=== PATIENT | female | born 1955 | race Caucasian/White ===

== ENCOUNTER → 2017-08-20 | Outpatient (CLI) | payer OTHER ==
[~2017-08-20] MED LIST: ASPIR 8181 MG PO; AUGMENTIN 875-1 EACH PO; CHOLESTYRAMINE P4 GM PO; CIPRO500 MG PO; FLAGYL500 MG PO; KEFLEX500 M1 PO; LIPITOR 20 MG T20 M1 PO; LOPRESSOR25 PO; LORATIDINE 10 M10 M1 PO; OMEPRAZOLE 20 M20 M1 PO; PHENERGAN 25 MG25 M1 PO; REFRESH OPTIVE15 ML OPHTHALMIC; RELPAX40 MG PO; SYNTHROID100 MC1 PO
== END ==
LOC: RAD 04:29
DX: Z12.31 Encounter for screening mammogram for malignant neoplasm of breast (principal)

== ENCOUNTER 2017-12-27 21:57 | Emergency (ER) | payer OTHER ==
[~2017-12-27] VITALS: Ht 152.4 cm; Wt 45.4 kg
[2017-12-27 21:58] VITALS: BP 174/82
[2017-12-27] MEDS ORDERED: LOPRESSOR25 PO (22:05)
[2017-12-27] MEDS ORDERED: SYNTHROID100 MC1 PO (22:05)
[2017-12-27] MEDS ORDERED: LIPITOR 20 MG T20 M1 PO (22:05)
[2017-12-27] MEDS ORDERED: RELPAX40 MG PO (22:05)
[2017-12-27] MEDS ORDERED: ASPIR 8181 MG PO (22:06)
[2017-12-27] MEDS ORDERED: REFRESH OPTIVE15 ML OPHTHALMIC (22:06)
[2017-12-27] MEDS ORDERED: OMEPRAZOLE 20 M20 M1 PO (22:06)
[2017-12-27] MEDS ORDERED: CHOLESTYRAMINE P4 GM PO (22:07)
[2017-12-27] MEDS ORDERED: KEFLEX500 M1 PO (22:34)
== END 2017-12-27 23:09 | disposition home or self-care (01) ==
LOC: ER 21:57
DX: S61.551A Open bite of right wrist, initial encounter (principal); I10 Essential (primary) hypertension; E78.5 Hyperlipidemia, unspecified; E03.9 Hypothyroidism, unspecified; Z90.710 Acquired absence of both cervix and uterus; Z88.1 Allergy status to other antibiotic agents; Z88.0 Allergy status to penicillin; Z88.2 Allergy status to sulfonamides; W54.0XXA Bitten by dog, initial encounter; Y93.89 Activity, other specified; Y92.89 Other specified places as the place of occurrence of the external cause; Y99.8 Other external cause status

== ENCOUNTER 2018-01-01 20:45 | Emergency (ER) | payer OTHER ==
[~2018-01-01] VITALS: Ht 152.4 cm; Wt 45.4 kg
--- NOTE | ~2018-01-01 | EKG ---
[place] [address] [facility] [place] [address] ELECTROCARDIOGRAM REPORT Name: PRATIBHA BRISENO Room #: DEP [place]#: [id number] Admission: 01/01/18 Attend Phys: Discharge: 01/02/18 Date of : 55 Report #: [id number] THIS REPORT FOR: //name// [facility] ED Test Date: 2018-01-01 Test Time: 21:38:16 Pat Name: PRATIBHA BRISENO Department: Room: Gender: F [employer] Systems Administrator: KAYE : 1955 Requested By: Fadia Tesfaye Order Number: [id number] MD: Chago Deng Measurements Intervals [place] Rate: 107 P: 94 SC: 129 QRS: 87 QRSD: 94 T: 10 QT: 357 QTc: 477 Interpretive Statements Sinus tachycardia Nonspecific ST segment abnormality No previous ECG available for comparison Electronically Signed On 01-03-2018 8:34:23 CDT by Chago Deng [email or web address] <ELECTRONICALLY SIGNED> By: Chago Deng MD, [facility] 01/03/18 0834 [id number] 2138 Chago Deng MD, FACC /EPI
[~2018-01-01 20:45] MED LIST changes: -AUGMENTIN 875-1 EACH PO; -CIPRO500 MG PO; -FLAGYL500 MG PO; -LORATIDINE 10 M10 M1 PO; -PHENERGAN 25 MG25 M1 PO
[2018-01-01 21:50] LABS: ABSOLUTE NEUTROPHILS 12.6 thou/uL (1.4-8.2); BASOPHILS 0.6 % (0.0-2.0); EOSINOPHILS 0.1 % (0.0-3.0); HEMATOCRIT 52.6 % (37.0-47.0); HEMOGLOBIN 18.4 gm/dL (12.0-15.0); LYMPHOCYTES 3.4 % (24.0-44.0); MCH 29.4 pg (26.0-34.0); MCV 84.2 fL (80.0-100.0); MONOCYTES 3.9 % (1.0-8.0); PLATELET COUNT 287 thou/uL (150-400); RBC 6.24 mil/uL (4.20-5.00); RDW 13.5 % (10.5-14.5); WBC 13.7 thou/uL (4.0-11.0)
[2018-01-01 21:52] LABS: URINE BLOOD 1+ (Negative); URINE COLOR YELLOW; URINE GLUCOSE-RANDOM* NEGATIVE (Negative); URINE KETONES TRACE (Negative); URINE LEUKOCYTES-REFLEX NEGATIVE (Negative); URINE NITRITE-REFLEX NEGATIVE (Negative); URINE PROTEIN (DIPSTICK) 1+ (Negative); URINE SPECIFIC GRAVITY >= 1.030 (1.005-1.035); URINE UROBILINOGEN 0.2 E.U./dl (0.2-1.0)
[2018-01-01 21:53] LABS: ICTOTEST (BILI CONFIRMATORY) Negative (Negative); URINE BILIRUBIN NEGATIVE (Negative); URINE CLARITY TURBID
[2018-01-01 21:58] LABS: AMORPHOUS URATES Many /LPF (None Seen); BACTERIA-REFLEX None Seen /HPF (None Seen); CASTS None Seen /LPF (None Seen); MUCUS 4-6 Moderate strn/LPF (None Seen); SQUAMOUS None Seen /LPF (0-3); URINE RBC 0-2 Rare /HPF (0-2); URINE WBC-REFLEX 0-5 Rare /HPF (0-5)
[2018-01-01 22:01] LABS: ANION GAP 16 mmol/L (7-16); BUN 28 mg/dL (7-18); CALCIUM 9.9 mg/dL (8.5-10.1); CHLORIDE 96 mmol/L (98-107); CO2 25 mmol/L (21-32); CREATININE 1.3 mg/dL (0.6-1.0); GLUCOSE 140 mg/dL (74-106); POTASSIUM 3.2 mmol/L (3.5-5.1); SODIUM 137 mmol/L (136-145)
[2018-01-01 22:08] LABS: ALBUMIN 4.6 g/dL (3.4-5.0); LIPASE 783 U/L (73-393); SGOT 26 U/L (15-37); SGPT 82 U/L (30-65); TOTAL BILIRUBIN 1.6 mg/dL (<0.1-1.0); TOTAL PROTEIN 9.1 g/dL (6.4-8.2); TROPONIN-I <0.06 ng/mL (<0.06)
[2018-01-02] MEDS ORDERED: PHENERGAN 25 MG25 M1 PO (00:26)
[2018-01-02] MEDS ORDERED: CIPRO500 MG PO (00:26)
[2018-01-02] MEDS ORDERED: FLAGYL500 MG PO (00:26)
[2018-01-02 00:36] VITALS: BP 105/72
== END 2018-01-02 00:40 | disposition home or self-care (01) ==
LOC: ER 20:45
PROVIDERS: Physician Assistant
DX: R19.7 Diarrhea, unspecified (principal); R11.2 Nausea with vomiting, unspecified; E86.0 Dehydration; D72.829 Elevated white blood cell count, unspecified; R00.0 Tachycardia, unspecified; I10 Essential (primary) hypertension; E78.5 Hyperlipidemia, unspecified; E03.9 Hypothyroidism, unspecified; Z90.710 Acquired absence of both cervix and uterus; Z88.2 Allergy status to sulfonamides; Z88.0 Allergy status to penicillin; Z88.1 Allergy status to other antibiotic agents; Z88.8 Allergy status to other drugs, medicaments and biological substances

== ENCOUNTER 2018-01-03 16:24 | Inpatient (IN) | payer OTHER ==
[~2018-01-03] VITALS: Ht 152.4 cm; Wt 46.3 kg
--- NOTE | ~2018-01-03 | HC ---
[facility] [place] [address] CONSULTATION Name: PRATIBHA BRISENO GRANT Room #: 225-P ADM IN M.R.#: [id number] Admission: 01/03/18 Attend Phys: Poncho Manley MD Discharge: Date of : 55 Report #: [id number] THIS REPORT FOR: //name// CC: Poncho Winchester DATE OF SERVICE: 01/03/2018 REASON FOR CONSULTATION: Evaluate dog bite in the setting of multiple drug allergies. HISTORY OF PRESENT ILLNESS: The patient is a 62-year-old with a history of hypertension, hypothyroidism, Crohn's disease as well as Raynaud's syndrome. She had a dog bite on 12/27/2017. She was petting her son's dog while he was asleep. Apparently startled the dog and he bit her on the right forearm and wrist area. She was seen in the Emergency Room and placed on cephalexin. Given tetanus vaccination. She then followed up with hand surgeon who put her in a partial cast and changed her antibiotics from Keflex to Bactrim. With this, she developed nausea and vomiting. CT scan showed extrahepatic biliary bile duct dilatation. May have had an ileus. Bactrim was discontinued and she is placed on ciprofloxacin and metronidazole. She continues to have loose stools. She did not take the ciprofloxacin due to previous FLUOROQUINOLONE ALLERGY. She continued the metronidazole. Now hospitalized because of persistent swelling and erythema. Antibiotic therapy intravenously was planned. She denies any fever, chills or sweats. Pain in her wrist continues, although she has had increased range of motion. She notes no significant drainage from her puncture wounds. She had an x-ray on 12/27, which showed no bony abnormalities or foreign body. ALLERGIES: PENICILLIN WITH RASH, ALTHOUGH SHE HAS BEEN ON AMPICILLIN AND TOLERATED LONG SHE TOOK BENADRYL. SHE TOLERATED CEPHALOSPORINS. ALSO REPORTS DOXYCYCLINE, FLUCONAZOLE AND QUINOLONES. SHE DID TOLERATE BACTRIM, ALTHOUGH SHE DEVELOPED GI SIDE EFFECT. MEDICATIONS: Include Lopressor, Lipitor, ____, Synthroid, Refresh eye drops, aspirin, omeprazole and cholestyramine. PAST MEDICAL HISTORY: Hypertension, hyperlipidemia, hypothyroidism, hysterectomy, Crohn's disease in remission. FAMILY HISTORY: Noncontributory. SOCIAL HISTORY: Nonsmoker. No significant alcohol intake. No HIV risk factors. [address] [address] CONSULTATION Name: PRATIBHA BRISENO [facility] Room #: 225-P [facility] IN M.R.#: [id number] Admission: 01/03/18 Attend Phys: Poncho Manley MD Discharge: Date of : 55 Report #: [id number] REVIEW OF SYSTEMS: She has had no skin or lymph issues other than what is noted above. She has had Raynaud's symptoms with the family history of such. No neurologic issues. No psychiatric issues. No cardiopulmonary, GI or complaints currently. Stools have improved. She has had no vomiting. Other joints have been unremarkable. PHYSICAL EXAMINATION: VITAL SIGNS: Afebrile and hemodynamically stable. GENERAL: She is alert and cooperative. No acute distress. NEUROLOGIC: Normal. Mood normal. HEENT: Normal. NECK: Supple. No adenopathy. LUNGS: Clear. HEART: Regular. ABDOMEN: Soft and nontender. EXTREMITIES: Noted the right upper extremity with several lacerations with eschar. Relatively clean. The one over her ulnar process has mild surrounding erythema. No fluctuance or drainage. Range of motion in the wrist is satisfactory. No joint effusion identified. Extensive ecchymosis in her forearm and dorsum of her hand. Minimal erythema involving the forearm. More erythema involving the dorsum of her hand. She did have changes of Raynaud's bilaterally. Sensation was intact in the hand. Pulses in the wrist were normal. Capillary refill was normal. LABORATORY STUDIES: Sedimentation rate 2, procalcitonin 0.12. Sodium 139, potassium 2.9, bicarbonate 24 and creatinine 0.9. Liver function test normal. Hemoglobin 15.7, white count 7.0, platelet count 237,000. Differential unremarkable. IMPRESSION: A 62-year-old with Raynaud's and Crohn's in remission who is one week out from dog bite. She has been on multiple antibiotic programs, unclear specifically what drugs she was on coming into the hospital for the patient was not clear on this. SHE DOES HAVE PENICILLIN ALLERGY, ALTHOUGH HAS TOLERATED CEPHALOSPORINS. PLAN: Recommend continuing IV antibiotic therapy with meropenem. This will cover appropriate organisms for a dog bite. We will talk to her further regarding Augmentin use for she feels that she has been on this before. We will see if she can track down pharmacy that dispensed it. She will elevate her hand overnight to control swelling. We will reassess the wrist tomorrow. If no improvement, we will have hand surgery evaluate her as well. <ELECTRONICALLY SIGNED> By: Juan Antonio Cochran MD 01/04/18 1425 2219 0142 Juan Antonio Cochran MD /nt
[~2018-01-03 16:24] MED LIST changes: +CIPRO500 MG PO; +FLAGYL500 MG PO; +PHENERGAN 25 MG25 M1 PO
[2018-01-03 18:10] LABS: ABSOLUTE NEUTROPHILS 5.1 thou/uL (1.4-8.2); BASOPHILS 0.4 % (0.0-2.0); EOSINOPHILS 1.8 % (0.0-3.0); HEMATOCRIT 45.6 % (37.0-47.0); LYMPHOCYTES 16.1 % (24.0-44.0); MCH 29.4 pg (26.0-34.0); MCHC 34.4 g/dL (28.0-37.0); MCV 85.5 fL (80.0-100.0); MONOCYTES 9.5 % (1.0-8.0); PLATELET COUNT 237 thou/uL (150-400); POLYS 72.2 % (36.0-66.0); RBC 5.34 mil/uL (4.20-5.00); RDW 13.3 % (10.5-14.5)
[2018-01-03 18:15] LABS: HEMOGLOBIN 15.7 gm/dL (12.0-15.0)
[2018-01-03 18:17] LABS: ALBUMIN 3.5 g/dL (3.4-5.0); CALCIUM 8.6 mg/dL (8.5-10.1); CREATININE 0.9 mg/dL (0.6-1.0); TOTAL BILIRUBIN 0.7 mg/dL (<0.1-1.0); TOTAL PROTEIN 6.9 g/dL (6.4-8.2)
[2018-01-03 18:21] LABS: POTASSIUM 2.9 mmol/L (3.5-5.1)
[2018-01-03 19:37] VITALS: BP 107/65
[2018-01-03 23:29] VITALS: BP 144/80
[2018-01-04 04:43] VITALS: BP 101/46
[2018-01-04 06:10] LABS: HEMATOCRIT 38.8 % (37.0-47.0); MCH 29.9 pg (26.0-34.0); MCV 85.5 fL (80.0-100.0); RBC 4.54 mil/uL (4.20-5.00); RDW 13.4 % (10.5-14.5); WBC 6.3 thou/uL (4.0-11.0)
[2018-01-04 06:14] LABS: HEMOGLOBIN 13.6 gm/dL (12.0-15.0)
[2018-01-04 06:27] LABS: ALBUMIN 2.8 g/dL (3.4-5.0); CALCIUM 8.1 mg/dL (8.5-10.1); CREATININE 0.7 mg/dL (0.6-1.0); POTASSIUM 3.6 mmol/L (3.5-5.1); TOTAL BILIRUBIN 0.6 mg/dL (<0.1-1.0); TOTAL PROTEIN 5.4 g/dL (6.4-8.2)
[2018-01-04 07:45] VITALS: BP 127/79
[2018-01-04 13:17] VITALS: BP 117/69
[2018-01-04 20:02] VITALS: BP 111/62
[2018-01-05 07:16] LABS: HEMOGLOBIN 13.8 gm/dL (12.0-15.0); MCH 29.7 pg (26.0-34.0); MCHC 34.6 g/dL (28.0-37.0); MCV 85.8 fL (80.0-100.0); RBC 4.66 mil/uL (4.20-5.00); RDW 13.2 % (10.5-14.5); WBC 6.1 thou/uL (4.0-11.0)
[2018-01-05 07:27] LABS: CALCIUM 8.1 mg/dL (8.5-10.1); CREATININE 0.7 mg/dL (0.6-1.0); POTASSIUM 3.5 mmol/L (3.5-5.1)
[2018-01-05 08:44] VITALS: BP 114/71
[2018-01-05] MEDS ORDERED: LORATIDINE 10 M10 M1 PO (11:15)
[2018-01-05] MEDS ORDERED: AUGMENTIN 875-1 EACH PO (11:15)
[2018-01-05 11:36] VITALS: BP 114/71
== END 2018-01-05 13:03 | disposition home or self-care (01) | DRG 602 ==
LOC: 4E 16:24 → SICU 01-04 13:45
PROVIDERS: Hospitalist; Nurse Practitioner
DX: L03.113 Cellulitis of right upper limb (principal); E43 Unspecified severe protein-calorie malnutrition; K50.90 Crohn's disease, unspecified, without complications; Z68.1 Body mass index [BMI] 19.9 or less, adult; S61.451A Open bite of right hand, initial encounter; W54.0XXA Bitten by dog, initial encounter; E78.5 Hyperlipidemia, unspecified; I10 Essential (primary) hypertension; E03.9 Hypothyroidism, unspecified; I73.00 Raynaud's syndrome without gangrene; Z88.1 Allergy status to other antibiotic agents; Z88.0 Allergy status to penicillin; Z88.8 Allergy status to other drugs, medicaments and biological substances; Z90.710 Acquired absence of both cervix and uterus; Z88.2 Allergy status to sulfonamides; Y93.89 Activity, other specified; Y92.89 Other specified places as the place of occurrence of the external cause; Y99.8 Other external cause status
CPT/HCPCS: 10183; 15002

== ENCOUNTER → 2018-09-16 | Outpatient (CLI) | payer OTHER ==
[~2018-09-16] MED LIST changes: +AUGMENTIN 875-1 EACH PO; +LORATIDINE 10 M10 M1 PO
== END ==
LOC: RAD 01:40
DX: Z12.31 Encounter for screening mammogram for malignant neoplasm of breast (principal)

== ENCOUNTER 2019-03-14 16:09 | Emergency (ER) | payer OTHER ==
[~2019-03-14] VITALS: Ht 152.4 cm; Wt 45.4 kg
[2019-03-14 16:16] VITALS: BP 162/72
[2019-03-14] MEDS ORDERED: AUGMENTIN 875-1 EACH PO (17:06)
== END 2019-03-14 17:10 | disposition home or self-care (01) ==
LOC: ER 16:09
DX: S81.812A Laceration without foreign body, left lower leg, initial encounter (principal); I10 Essential (primary) hypertension; E03.9 Hypothyroidism, unspecified; E78.5 Hyperlipidemia, unspecified; Z90.710 Acquired absence of both cervix and uterus; Z88.2 Allergy status to sulfonamides; Z88.8 Allergy status to other drugs, medicaments and biological substances; Z88.1 Allergy status to other antibiotic agents; W54.0XXA Bitten by dog, initial encounter; Y93.89 Activity, other specified; Y92.89 Other specified places as the place of occurrence of the external cause; Y99.8 Other external cause status

== ENCOUNTER 2019-05-13 06:08 | Emergency (ER) | payer OTHER ==
[~2019-05-13] VITALS: Ht 152.4 cm; Wt 44.5 kg
[2019-05-13] MEDS ORDERED: FOSAMAX 70 MG T70 MG PO (06:21)
[2019-05-13] MEDS ORDERED: AMOXICILLI400 MG/5 M PO (06:23)
[2019-05-13] MEDS ORDERED: PREDNISONE 20 M20 MG PO (06:56)
[2019-05-13] MEDS ORDERED: PEPCID20 MG PO (06:56)
[2019-05-13 08:15] VITALS: BP 132/72
== END 2019-05-13 08:23 | disposition home or self-care (01) ==
LOC: ER 06:08
DX: L50.9 Urticaria, unspecified (principal); T78.3XXA Angioneurotic edema, initial encounter; T36.0X5A Adverse effect of penicillins, initial encounter; I10 Essential (primary) hypertension; E78.5 Hyperlipidemia, unspecified; E03.9 Hypothyroidism, unspecified; Z90.710 Acquired absence of both cervix and uterus; Z88.1 Allergy status to other antibiotic agents; Z88.2 Allergy status to sulfonamides; Z88.8 Allergy status to other drugs, medicaments and biological substances; Y92.89 Other specified places as the place of occurrence of the external cause

== ENCOUNTER → 2019-09-18 | Outpatient (CLI) | payer OTHER ==
[~2019-09-18] MED LIST changes: +AMOXICILLI400 MG/5 M PO; +FOSAMAX 70 MG T70 MG PO; +PEPCID20 MG PO; +PREDNISONE 20 M20 MG PO
== END ==
LOC: RAD 08:04 → BC 09:05 → RAD 09:11
DX: Z12.31 Encounter for screening mammogram for malignant neoplasm of breast (principal)

== ENCOUNTER → 2020-10-11 | Outpatient (CLI) | payer OTHER ==
[~2020-10-11] VITALS: Ht 152.4 cm; Wt 45.4 kg
[2020-10-11 09:12] VITALS: BP 158/70
[2020-10-11 09:55] LABS: HEMATOCRIT 42.4 % (37.0-47.0); HEMOGLOBIN 14.4 gm/dL (12.0-15.0); MCH 29.8 pg (26.0-34.0); MCHC 33.9 g/dL (28.0-37.0); MCV 87.9 fL (80.0-100.0); RBC 4.82 mil/uL (4.20-5.00); RDW 12.9 % (10.5-14.5); WBC 6.1 thou/uL (4.0-11.0)
[2020-10-11 09:58] LABS: CALCIUM 9.3 mg/dL (8.5-10.1); CREATININE 0.7 mg/dL (0.6-1.0); POTASSIUM 3.5 mmol/L (3.5-5.1)
[2020-10-11 10:00] LABS: PROTIME 10.9 Seconds (9.3-11.4)
[2020-10-11 10:56] VITALS: BP 175/82
[2020-10-11 11:03] VITALS: BP 132/65
--- NOTE | 2020-10-12 18:06 | PATH ---
[facility] [address] [place] [address] PATHOLOGY RPT PROCEDURE Name: PRATIBHA BRISENO GRANT Room #: REG KISHA Contreras.#: [id number] Admission: 10/11/20 Date of : 55 Discharge: Report #: [id number] Path Case #: [id number] [facility] Accession Number: [id number] . 01 Material submitted: . liver - LIVER BX . 01 Clinical history: . GENERAL LIVER BIOPSY . . 02 Diagnosis: Liver, needle core biopsy: - Nonspecific reactive changes with mild mixed portal chronic inflammation. - No significant increase in fibrosis. (IUV:pit 10/12/2020) QTP 10/12/2020 1532 Local . 02 Comment: History of positive ASMA antibody screen along with mildly elevated smooth muscle antibody titer as well as a negative AMA, negative KATJA, mildly elevated ALT, and a fatty liver on ultrasound are provided by Dr. Young's office. . Examination of the liver needle core biopsy tissue shows mild mixed portal chronic inflammation comprised of a few lymphocytes, scattered rare plasma cells, as well as an occasional eosinophil. Sheets of plasma cells are not identified. There is no evidence of steatosis within the current biopsy tissue (likely due to sampling). There is no evidence of ballooning, or acidophil bodies identified. Milly-Denk bodies are not present at well. There is no evidence of bile ductular proliferation, or florid duct lesions, or sclerosing duct lesions identified. Hepatocyte dai formation, or cholangiole formation is not identified as well. . Special stains are performed on block A1. Trichrome stain shows mildly enlarged portal tracts, there is no evidence of bridging fibrosis, or extensive periportal fibrosis present. Reticulin stain shows the same along with scattered rare foci of condensation. Sclerosing duct lesions are not identified around the bile ducts. PAS with and without diastase are negative for intracytoplasmic globules in zone 1. Rare 1+ granular iron is noted within the zone 1 hepatocytes. . Findings are nonspecific. Drug or medication induced change cannot be excluded. Clinical correlation is suggested. (IUV:pit 10/12/2020) . [address] [address] PATHOLOGY RPT PROCEDURE Name: PRATIBHA BRISENO GRANT Room #: REG KISHA Monge#: [id number] Admission: 10/11/20 Date of : 55 Discharge: Report #: [id number] Path Case #: [id number] Electronically signed: . Latia Zhang MD, Pathologist NPI- [id number] . 01 Gross description: . The specimen is received in formalin, labeled "Pratibha Card, general liver biopsy". Received are two needle cores of orange-brown tissue measuring 1.7 and 2.0 cm in length, with each measuring 0.1 cm in diameter. The specimen is submitted entirely in cassette A1. (CAA; 10/11/2020) QAC/QAC 10/11/2020 1657 Local . 02 Pathologist provided ICD-10: K73.9 . 02 CPT . 924201, 056014, 168942, [id number], 416507, [id number] Specimen Comment: A courtesy copy of this report has been sent to [phone], [phone] Specimen Comment: [phone] Specimen Comment: Report sent to / DR GALLAGHER Performed at: 01 [facility] [address] [place] [address] [address], [place] [id number] MD Bernardo Hauser MD Phone: [phone] Performed at: [address] [facility] [id number] MD Latia Zhang MD Phone: [phone]
== END | disposition home or self-care (01) ==
LOC: SPEC 07:42 → ULTRA 07:42
PROVIDERS: ATTEND Specialist
DX: K73.9 Chronic hepatitis, unspecified (principal); R94.5 Abnormal results of liver function studies; I10 Essential (primary) hypertension; E78.5 Hyperlipidemia, unspecified; E03.9 Hypothyroidism, unspecified; Z98.890 Other specified postprocedural states; Z79.899 Other long term (current) drug therapy; Z90.710 Acquired absence of both cervix and uterus; Z82.49 Family history of ischemic heart disease and other diseases of the circulatory system; Z88.2 Allergy status to sulfonamides; Z88.8 Allergy status to other drugs, medicaments and biological substances

== ENCOUNTER → 2020-12-29 | Outpatient (CLI) | payer OTHER | LOC: BC 10:05 | PROVIDERS: ATTEND Obstetrics & Gynecology | DX: Z12.31 Encounter for screening mammogram for malignant neoplasm of breast (principal) ==